=== PATIENT | female | born 2005 | race African-American/Black ===

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

== ENCOUNTER 2025-04-17 12:59 | Observation (INO) ==
[2025-04-17 13:10] VITALS: BMI 39.4
--- NOTE | 2025-04-17 13:10 | EKG ---
Test Reason : chest pain Blood Pressure : */* mmHG Vent. Rate : 95 BPM Atrial Rate : 95 BPM P-R Int : 128 ms QRS Dur : 82 ms QT Int : 320 ms P-R-T Axes : 32 50 14 degrees QTc Int : 402 ms Normal sinus rhythm Normal ECG No previous ECGs available Confirmed by Blake Nava MD ([id number]) on 04/17/2025 5:13:42 PM Referred By: Confirmed By: Blake Nava MD
[2025-04-17 13:40] LABS: MEAN PLATELET VOLUME 7.6 fL (7.4-11.0); RED CELL DISTRIBUTION WIDTH 16.6 % (11.6-16.5)
--- NOTE | 2025-04-17 13:41 | DR.CP ---
HPI Time Seen Time Seen by Provider: 04/17/25 13:39 PCP Primary Care Physician: NFD Complaint Chief Complaint Doctor Comments: Patient states that about an hour ago she was at work and she got sudden onset of dizziness and severe fatigue. This patient also states she had an onset of some chest pressure. Does have a history of hypothyroidism but has not taken Synthroid for about 2 years. Chief Complaint:: Pt states that about an hour ago while at work she had a sudden onset of dizziness and then severe fatigue. Pt also had sudden onset of substernal chest pain described as heaviness. Pt also states that she had palpitations COVID-19 Coronavirus risk:travel/contact w/high risk person: No Has patient experienced Coronavirus symptoms: No Source History Provided: Patient Mode of Arrival Mode of Arrival: Ambulatory Timing Onset of Chief Complaint: 04/17/25 PMH PMH Past Medical History: Yes Past Medical History: Diabetes, Hypertension and Hypothyroidism Past Surgical History: No Family History History of Family Medical Conditions: No Family Medical History: Diabetes Mellitus Social History Does patient currently use any type of tobacco product: No Have you used tobacco products in the last 12 months: No Type of Tobacco Use: None Does any household member use tobacco: No Alcohol Use: None Do you use any recreational Drugs:: No Lives With: Family Lives Where: Home Travel Risk Coronavirus risk:travel/contact w/high risk person: No Has patient experienced Coronavirus symptoms: No Infectious screening In the last 2 months have you had wt loss of >10#?: NO Have you had fever, night sweats or hemotysis?: No Have you traveled outside the country in the last 6 months?: No Isolation: Standard ROS Review of Systems Constitutional: Other (Dizziness with palpitations and chest pressure.) Eyes: No Symptoms Reported ENTM: No Symptoms Reported Respiratoy: No Symptoms Reported Cardiovascular: Palpitations Gastrointestinal/Abdominal: No Symptoms Reported Genitourinary: No Symptoms Reported Neurological: No Symptoms Reported Musculoskeletal: No Symptoms Reported Integumentary: No Symptoms Reported Hematologic/Lymphatic: No Symptoms Reported Endocrine: No Symptoms Reported Psychiatric: No Symptoms Reported All Other Systems: Reviewed and Negative PE Vitals Vitals: Vital Signs Temperature 98.0 F Pulse Rate 87 Pulse Rate 87 Pulse Rate 91 Pulse Rate 96 Pulse Rate 92 Pulse Rate 91 Pulse Rate 94 Pulse Rate 102 Pulse Rate 101 Pulse Rate 97 Respiratory Rate 25 Respiratory Rate 13 Respiratory Rate 24 Respiratory Rate 15 Respiratory Rate 27 Respiratory Rate 15 Respiratory Rate 19 Respiratory Rate 20 Blood Pressure 130/70 Blood Pressure 124/76 Blood Pressure 125/64 Blood Pressure 135/69 Blood Pressure 148/69 O2 Sat by Pulse Oximetry 100 O2 Sat by Pulse Oximetry 100 O2 Sat by Pulse Oximetry 100 O2 Sat by Pulse Oximetry 100 O2 Sat by Pulse Oximetry 100 O2 Sat by Pulse Oximetry 100 O2 Sat by Pulse Oximetry 100 O2 Sat by Pulse Oximetry 100 O2 Sat by Pulse Oximetry 100 O2 Sat by Pulse Oximetry 100 General Limitations: No Limitations General Appearance: In No Apparent Distress Head Head Exam: Normal Inspection, Atraumatic and Normocephalic Eyes Eye exam: Normal Appearance, PERRL and EOMI ENT ENT Exam: Normal Exam and Normal Oropharynx Chest Chest Inspection: Normal Inspection and Symmetric Chest Wall Rise Respiratory Respiratory Exam: Normal Lung Sounds Bilat Respiratory Exam: Bilateral: Clear to Auscultation Abdominal Exam Abdominal Exam: Normal Inspection Extremities Extremities Exam: Normal Inspection Back Back Exam: Normal Inspection Neurologic Neurological Exam: Alert, Oriented X3 and CN II-XII Intact Psychiatric Psychiatric Exam: Normal Affect Skin Skin Exam: Warm MDM Additional Information Findings: anemia,h/h 6.1/19.5 Differential Diagnosis Differential Diagnosis: Angina and Myocardial Infarction COURSE Treatment Treatment: Patient remained stable during ER evaluation. We did do the cardiac workup on the patient was normal we did do CBC and her H&H was hemoglobin 6.1 hematocrit 19.5 platelets were 440. The metabolic panel was normal. The patient gave us more information stated she has been on her cycle for about 2- 1/2 weeks and she still is currently on her cycle. All we did talk to the patient about the probably needing 2 units of packed red blood cells and we did do thyroid function test and she states she has a history of hypothyroidism but has not been taking any medication for 2 years. The thyroid function test were relatively normal. We did talk to the on-call physician Dr. Hernandez and he stated the patient could be referred to observation for the 2 units of packed red blood cells. I spoke to the patient and the patient's mother and they were agreeable to the observation for the 2 units of packed red blood cells. [facility]OR Labs Reviewed Laboratory Results Reviewed?: Yes 04/17/25 13:24 04/17/25 13:24 Laboratory: WBC 6.9 X10^3/uL (3.6-10.0) 04/17/25 13:24 RBC 2.87 X10^6/uL (3.5-5.4) L 04/17/25 13:24 Hgb 6.1 g/dL (12.0-16.0) L* 04/17/25 13:24 Hct 19.5 % (36.0-47.0) L* 04/17/25 13:24 MCV 68.0 fL (80.0-100.0) L 04/17/25 13:24 MCH 21.3 pg (27.0-34.0) L 04/17/25 13:24 MCHC 31.3 g/dL (33.0-35.0) L 04/17/25 13:24 RDW 16.6 % (11.6-16.5) H 04/17/25 13:24 Plt Count 440 X10^3/uL (150.0-450.0) 04/17/25 13:24 Plt Count Comment Adequate (ADEQUATE) 04/17/25 13:24 MPV 7.6 fL (7.4-11.0) 04/17/25 13:24 Neut % (Auto) 69.8 % (42.0-75.0) 04/17/25 13:24 Lymph % (Auto) 24.8 % (21.0-51.0) 04/17/25 13:24 [place] % (Auto) 4.7 % (0.0-13.0) 04/17/25 13:24 Eos % (Auto) 0.2 % (0.9-2.9) L 04/17/25 13:24 Baso % (Auto) 0.5 % (0.2-1.0) 04/17/25 13:24 Neut # (Auto) 4.8 x10^3/uL (2.2-4.8) 04/17/25 13:24 Lymph # (Auto) 1.7 X10^3/uL (1.3-2.9) 04/17/25 13:24 [place] # (Auto) 0.3 x10^3/uL (0.3-0.8) 04/17/25 13:24 Eos # (Auto) 0.0 x10^3/uL (0.0-0.2) 04/17/25 13:24 Baso # (Auto) 0.0 X10^3/uL (0.0-0.1) 04/17/25 13:24 Absolute Nucleated RBC 0.0 /100WBC 04/17/25 13:24 Plt Morphology Comment Normal (NORMAL) 04/17/25 13:24 RBC Morphology Abnormal (NORMAL) A 04/17/25 13:24 Hypochromasia 2+ A 04/17/25 13:24 Poikilocytosis 1+ A 04/17/25 13:24 Microcytosis 1+ A 04/17/25 13:24 Tear Drop Cells Present 04/17/25 13:24 Ovalocytes Present 04/17/25 13:24 Sodium 139 mmol/L (136-145) 04/17/25 13:24 Corrected Sodium TNP 04/17/25 13:24 Potassium 4.3 mmol/L (3.5-5.1) 04/17/25 13:24 Chloride 105 mmol/L (98-107) 04/17/25 13:24 Carbon Dioxide 27.5 mmol/L (21-32) 04/17/25 13:24 BUN 13 mg/dL (7-18) 04/17/25 13:24 Creatinine 0.70 mg/dL (0.55-1.02) 04/17/25 13:24 Est GFR (MDRD) Af Amer > 60 (>60) 04/17/25 13:24 Est GFR (MDRD) Non-Af > 60 (>60) 04/17/25 13:24 Glucose 89 mg/dL (65-99) 04/17/25 13:24 Calcium 8.6 mg/dL (8.5-10.1) 04/17/25 13:24 Corrected Calcium TNP 04/17/25 13:24 Total Bilirubin 0.10 mg/dL (0.2-1.0) L 04/17/25 13:24 AST 17 Units/L (15-37) 04/17/25 13:24 ALT 25 Units/L (12-78) 04/17/25 13:24 Alkaline Phosphatase 95 Units/L (46-116) 04/17/25 13:24 Creatine Kinase 217 Units/L (26-192) H 04/17/25 13:24 Troponin I High Sens 6.2 ng/L (4.0-60.0) 04/17/25 13:24 Total Protein 8.0 g/dL (6.4-8.2) 04/17/25 13:24 Albumin 4.2 g/dL (3.4-5.0) 04/17/25 13:24 Globulin 3.8 g/dL (2.5-4.5) 04/17/25 13:24 Albumin/Globulin Ratio 1.1 Ratio (1.1-2.1) 04/17/25 13:24 Thyroxine (T4) 9.4 ug/dL (4.7-13.3) 04/17/25 13:24 TSH 3rd Generation 1.705 uIU/mL (0.358-3.74) 04/17/25 13:24 SARS-CoV-2 (PCR) Negative (NEGATIVE) 04/17/25 13:30 Influenza Type A (PCR) Negative (NEGATIVE) 04/17/25 13:30 Influenza Type B (PCR) Negative (NEGATIVE) 04/17/25 13:30 RSV (PCR) Negative (NEGATIVE) 04/17/25 13:30 Blood Type O POSITIVE 04/17/25 13:57 Antibody Screen Negative 04/17/25 13:57 Opioid Opioid Risk Tool Age ([place] box if 16-45): Yes History of Preadolescent Sexual Abuse: No Total: 1 Total Score Risk Category: Low Risk Copyright: Yair ÁLVAREZ predicting aberrant behaviors Discharge Plan Diagnosis Discharge Problem: Anemia, DUB (dysfunctional uterine bleeding) Discharge Plan Patient Disposition: 09 ADMITTED INPATIENT Condition: Stable Prescriptions: No Action NK Health Concerns: Post Hospitalization: new medications and changes needed to prevent readmission or further decline. Pt educated and given instructions on all concerns. Plan of Treatment: Continue with present treatment and follow up plan. Pt is to keep follow up appointment as instructed and take medications as ordered. Orders to Discharge Patient Discharge Orders: Transfer (Routine); Ordered 04/17/25 Ordered By: Jefferson Hamilton Follow ups/Referrals Follow ups/Referrals: NFD,None [Primary Care Provider] - 3 days Instructions Stand Alone Forms: Find Help Web Site, Post Hospital Follow Up Care Print Language: URUGUAYAN
[2025-04-17 13:48] LABS: CREATININE 0.70 mg/dL (0.55-1.02); eGFR NON BLACK RACES > 60 (>60)
[2025-04-17 14:08] LABS: TSH (3RD GENERATION) 1.705 uIU/mL (0.358-3.74)
[2025-04-17 14:23] LABS: PLATELET MORPHOLOGY COMMENT NORMAL (NORMAL)
[2025-04-17] MEDS ORDERED: NS 500 ML IV 500 ML IV ONE (15:29)
[2025-04-17] MEDS: NS 500 ML IV 500 ML IV ONE (15:58)
--- NOTE | 2025-04-17 16:57 | RAD ---
EXAM: CHEST HISTORY: Pt states that about an hour ago while at work she had a sudden onset of dizziness and then severe fatigue. Pt also had sudden onset of substernal chest pain described as heaviness.; COMPARISON: None. TECHNIQUE: Frontal view of the chest was submitted for interpretation. FINDINGS: The cardiomediastinal silhouette is within normal limits. Lungs show no focal consolidation, pneumothorax, or pleural fluid. IMPRESSION: No acute cardiopulmonary process. THIS IS AN ELECTRONICALLY VERIFIED FINAL REPORT 04/17/2025 4:53 PM - Electronically signed by Sal Banks MD
[2025-04-17] MEDS: D50W ABBOJECT SYR IV ONE (20:33)
[2025-04-18 03:47] LABS: MEAN PLATELET VOLUME 7.7 fL (7.4-11.0); RED CELL DISTRIBUTION WIDTH 21.4 % (11.6-16.5)
[2025-04-18 03:55] LABS: CREATININE 0.67 mg/dL (0.55-1.02); eGFR NON BLACK RACES > 60 (>60)
[2025-04-18 03:57] LABS: PLATELET MORPHOLOGY COMMENT NORMAL (NORMAL)
[2025-04-18] MEDS: K-DUR TAB 20 MEQ PO SCH ×2 (05:54→08:18)
[2025-04-18] MEDS ORDERED: CONSULT PHARMACY - POTASSIUM & MAGNESIUM XX SCH ×2 (07:00→09:00)
[2025-04-18 07:44] VITALS: BP 120/63; PULSE 79; RESP 20; TEMP 97.9; O2SAT 100
[2025-04-18] MEDS: MAG-OX TAB PO SCH (09:16)
--- NOTE | 2025-04-20 10:34 | DR.SSS ---
SHORT STAY SUMMARY Admission Date Date of Admission: 04/17/25 Discharge Date Discharge Date: 04/18/25 Admission Diagnoses Admission Diagnoses: Anemia Generalized weakness Discharge Diagnoses Discharge Diagnoses: Anemia Generalized weakness Heavy menstrual bleeding Chief Complaint Chief Complaint: weakness, dizziness History of Present Illness History of Present Illness: Patient is a 19-year-old female with no pertinent medical history presented with generalized weakness and dizziness. ER workup included labs which showed hemoglobin 6.1. All her other labs were unremarkable. She does report history of heavy menstrual bleeding. She currently does not have a PCP. She was admitted for blood transfusion. Past Medical History Past Medical History: Diabetes, Hypertension and Hypothyroidism Allergies Allergies Allergy/AdvReac Type Severity Reaction Status Date / Time No Known Drug Allergies Allergy Verified 04/19/25 09:39 Medications Home Medications: No Known Drug Allergies Allergy (Verified 04/17/25 13:48) CONTINUE taking the following medications NK 04/17/25 [History] Family History Family Medical History: Diabetes Mellitus, [place] and Hypertension Social History Does patient currently use any type of tobacco product: No Have you used tobacco products in the last 12 months: No Type of Tobacco Use: None Does any household member use tobacco: No Alcohol Use: None Drug Use: None Review of Systems Constitutional: Weakness Eyes: No Symptoms Reported ENT: No Symptoms Reported Respiratory: No Symptoms Reported Cardiovascular: [place] Gastrointestinal: No Symptoms Reported Genitourinary: No Symptoms Reported Musculoskeletal: No Symptoms Reported Skin: No Symptoms Reported Neurological: No Symptoms Reported Physical Exam Vital Signs: Last Vital Signs Temp 97.9 F 04/18/25 07:44 Pulse 79 04/18/25 07:44 Resp 20 04/18/25 07:44 BP 120/63 04/18/25 07:44 Pulse Ox 100 04/18/25 07:44 O2 Del Method Room Air 04/18/25 09:06 O2 Flow Rate 2 04/17/25 20:20 FiO2 21 04/18/25 09:06 Oriented: Normal Throat: Normal Respiratory: Clear Throughout Cardiovascular: Normal Auscultation: Bowel Sounds: Normal Palpation: Normal Tenderness: Normal Skin: Normal Musculoskeletal: Normal Psychiatric: Normal Mood Description: Calm Affect: Normal Speech Pattern: Clear and Appropriate Labs Labs: Laboratory Last Values WBC 7.4 X10^3/uL (3.6-10.0) 04/18/25 03:27 RBC 3.79 X10^6/uL (3.5-5.4) 04/18/25 03: Hgb 9.1 g/dL (12.0-16.0) L D 04/18/25 03: Hct 28.1 % (36.0-47.0) L 04/18/25 03:27 MCV 74.1 fL (80.0-100.0) L 04/18/25 03: MCH 23.9 pg (27.0-34.0) L 04/18/25 03: MCHC 32.2 g/dL (33.0-35.0) L 04/18/25 03: RDW 21.4 % (11.6-16.5) H 04/18/25 03: Plt Count 405 X10^3/uL (150.0-450.0) 04/18/25 03: Plt Count Comment Adequate (ADEQUATE) 04/18/25 03: MPV 7.7 fL (7.4-11.0) 04/18/25 03:27 Neut % (Auto) 55.6 % (42.0-75.0) 04/18/25 03: Lymph % (Auto) 33.9 % (21.0-51.0) 04/18/25 03: [place] % (Auto) 7.6 % (0.0-13.0) 04/18/25 03: Eos % (Auto) 1.3 % (0.9-2.9) 04/18/25 03: Baso % (Auto) 1.6 % (0.2-1.0) H 04/18/25 03:27 Neut # (Auto) 4.1 x10^3/uL (2.2-4.8) 04/18/25 03:27 Lymph # (Auto) 2.5 X10^3/uL (1.3-2.9) 04/18/25 03:27 [place] # (Auto) 0.6 x10^3/uL (0.3-0.8) 04/18/25 03:27 Eos # (Auto) 0.1 x10^3/uL (0.0-0.2) 04/18/25 03:27 Baso # (Auto) 0.1 X10^3/uL (0.0-0.1) 04/18/25 03:27 Absolute Nucleated RBC 0.1 /100WBC 04/18/25 03:27 Plt Morphology Comment Normal (NORMAL) 04/18/25 03:27 RBC Morphology Abnormal (NORMAL) A 04/18/25 03:27 Hypochromasia 1+ A 04/18/25 03:27 Poikilocytosis 1+ A 04/17/25 13:24 Anisocytosis 1+ A 04/18/25 03:27 Microcytosis Slight A 04/18/25 03:27 Tear Drop Cells Present 04/17/25 13:24 Ovalocytes Present 04/18/25 03:27 Sodium 137 mmol/L (136-145) 04/18/25 03:27 Corrected Sodium TNP 04/18/25 03:27 Potassium 3.6 mmol/L (3.5-5.1) 04/18/25 03:27 Chloride 104 mmol/L (98-107) 04/18/25 03:27 Carbon Dioxide 28.2 mmol/L (21-32) 04/18/25 03:27 BUN 12 mg/dL (7-18) 04/18/25 03:27 Creatinine 0.67 mg/dL (0.55-1.02) 04/18/25 03:27 Est GFR (MDRD) Af Amer > 60 (>60) 04/18/25 03:27 Est GFR (MDRD) Non-Af > 60 (>60) 04/18/25 03:27 Glucose 85 mg/dL (65-99) 04/18/25 03:27 POC Glucose (mg/dL) 85 mg/dL (65-99) 04/18/25 05:42 Calcium 8.4 mg/dL (8.5-10.1) L 04/18/25 03:27 Corrected Calcium TNP 04/18/25 03:27 Magnesium 1.8 mg/dL (2.0-2.9) L 04/18/25 03:27 Total Bilirubin 0.40 mg/dL (0.2-1.0) 04/18/25 03:27 AST 17 Units/L (15-37) 04/18/25 03:27 ALT 24 Units/L (12-78) 04/18/25 03:27 Alkaline Phosphatase 101 Units/L (46-116) 04/18/25 03:27 Creatine Kinase 217 Units/L (26-192) H 04/17/25 13:24 Troponin I High Sens 6.2 ng/L (4.0-60.0) 04/17/25 13:24 Total Protein 7.6 g/dL (6.4-8.2) 04/18/25 03:27 Albumin 4.0 g/dL (3.4-5.0) 04/18/25 03:27 Globulin 3.6 g/dL (2.5-4.5) 04/18/25 03:27 Albumin/Globulin Ratio 1.1 Ratio (1.1-2.1) 04/18/25 03:27 Free T4 1.15 ng/dL (0.76-1.46) 04/18/25 03:27 Thyroxine (T4) 9.4 ug/dL (4.7-13.3) 04/17/25 13:24 TSH 3rd Generation 1.705 uIU/mL (0.358-3.74) 04/17/25 13:24 SARS-CoV-2 (PCR) Negative (NEGATIVE) 04/17/25 13:30 Influenza Type A (PCR) Negative (NEGATIVE) 04/17/25 13:30 Influenza Type B (PCR) Negative (NEGATIVE) 04/17/25 13:30 RSV (PCR) Negative (NEGATIVE) 04/17/25 13:30 Blood Type O POSITIVE 04/17/25 13:57 Antibody Screen Negative 04/17/25 13:57 Crossmatch See Detail 04/17/25 13:57 Hospital Course Hospital Course: Patient was admitted for anemia requiring blood transfusion. She was transfused 2 units of blood. Her hemoglobin came up to 10.2. She was feeling better. Her labs are monitored daily and electrolytes replace as needed. She was ambulating in the room and tolerating p.o. intake. She was stable to be discharged home. She will follow-up with PCP and [employer] as scheduled. Discharge Medications Discharge Medications: Home Medication List NK 04/17/25 [History] Prescriptions: Discharge Disposition Discharge Disposition: To home Discharge Plan Discharge Plan Patient Disposition: 01 HOME, SELF-CARE Condition: Stable Health Concerns: Post Hospitalization: new medications and changes needed to prevent readmission or further decline. Pt educated and given instructions on all concerns. Care Plan Goals: Problem: Fluid Volume Deficit Goal: Maintain/Improved Adequate hydration. Instructions: Follow provided instructions. Follow up with primary physician as directed. Contact primary care physician or report to the closest Emergency Room if condition worsens. Plan of Treatment: Continue with present treatment and follow up plan. Pt is to keep follow up appointment as instructed and take medications as ordered. Prescription drug monitoring program results: PDMP reviewed and no concerns identified Prescriptions: Continued NK Orders to Discharge Patient Discharge Orders: Discharge (Routine); Ordered 04/18/25 Ordered By: Nina Sotelo Follow ups/Referrals Follow ups/Referrals: NATY COLBERT [STAFF PHYSICIAN, Obsetrics/Gynecology] - 04/19/25 9:30 am Danielito Hernandez MD [STAFF PHYSICIAN, MEDICAL] - 04/25/25 2:00 pm Instructions Instructions: Anemia, Abnormal Uterine Bleeding, [id number] Stand Alone Forms: Excuse From Work or School, Find Help Web Site, Post Hospital Follow Up Care Print Language: JAPANESE
== END 2025-04-18 11:25 | disposition home or self-care (01) ==
LOC: MED/SURG 12:59 → ER 12:59 → MED/SURG 16:07
PROVIDERS: ADMIT Family Medicine; ATTEND Family Medicine
DX: D64.89 Other specified anemias; E03.8 Other specified hypothyroidism; R53.1 Weakness; Z03.818 Encounter for observation for suspected exposure to other biological agents ruled out; I10 Essential (primary) hypertension; R07.89 Other chest pain; E11.9 Type 2 diabetes mellitus without complications; N92.1 Excessive and frequent menstruation with irregular cycle; R42 Dizziness and giddiness